=== PATIENT | male | born 2000 | race African-American/Black ===

== ENCOUNTER 2024-01-13 22:05 | Emergency (ER) | payer SELFPAY ==
[~2024-01-13] VITALS: Ht 170.2 cm; Wt 78.0 kg
[2024-01-13 22:22] VITALS: O2SAT 100
[2024-01-13] MEDS ORDERED: IBUPROFEN 600MG TABLET PO ONE (22:30)
[2024-01-13 22:38] LABS: DIFFERENTIAL COMMENT 1; HEMATOCRIT. 36.8 % (42.0-52.0); HEMOGLOBIN. 12.3 g/dL (14.0-18.0); MEAN CORPUSCULAR HEMOGLOBIN 31.2 pg (28.0-32.0); MEAN CORPUSCULAR HGB CONC 33.3 g/dL (31.0-37.0); MEAN CORPUSCULAR VOLUME 93.5 fL (80.0-94.0); PLATELET 195 x1000/uL (130-400); RED BLOOD CELL COUNT 3.94 mill/uL (4.7-6.1); RED CELL DISTRIBUTION WIDTH 14.7 % (11.6-14.6); WHITE BLOOD COUNT 5.7 x1000/uL (4.5-11.0)
[2024-01-13 22:47] LABS: CHLORIDE 111 mEq/L (98-107); SODIUM 142 mEq/L (136-145)
[2024-01-13 22:48] LABS: CARBON DIOXIDE 26 mEq/L (21-32)
[2024-01-13 22:49] LABS: CALCIUM 8.7 mg/dL (8.7-10.4)
[2024-01-13 22:53] LABS: CREATININE 1.2 mg/dL (0.6-1.3)
[2024-01-13 22:54] LABS: GLUCOSE 90 mg/dL (70-105); UREA NITROGEN BLOOD 15 mg/dL (9-23)
[2024-01-13 22:56] LABS: ACETAMINOPHEN 10 ug/mL (10-30)
[2024-01-13 23:03] LABS: ETHANOL BLOOD < 10 mg/dL (<10)
[2024-01-13 23:06] LABS: ANISOCYTOSIS 1+; PLATELET ESTIMATE NORMAL
[2024-01-13] MEDS: LORAZEPAM 2MG/ML INJ IM ONE (23:16)
[2024-01-13] MEDS: DIPHENHYDRAMINE 50MG/ML VIAL IM ONE (23:28)
[2024-01-13] MEDS: HALOPERIDOL LACTATE 5MG/ML VIAL IM ONE (23:29)
[2024-01-14 00:03] LABS: CLARITY URINE CLEAR (CLEAR); COLOR URINE YELLOW (YELLOW); GLUCOSE URINE NEGATIVE (NEGATIVE); KETONES URINE NEGATIVE (NEGATIVE); LEUKOCYTE ESTERASE URINE NEGATIVE (NEGATIVE); NITRITE URINE NEGATIVE (NEGATIVE); OCCULT BLOOD URINE NEGATIVE (NEGATIVE); PROTEIN URINE NEGATIVE (NEGATIVE); UROBILINOGEN URINE 0.2 E.U./dL (0.2-1.0)
[2024-01-14 00:11] LABS: *AMPHETAMINES SCREEN URINE NEGATIVE (NEGATIVE); *BARBITURATES SCREEN URINE NEGATIVE (NEGATIVE); *BENZODIAZEPINES SCREEN URINE NEGATIVE (NEGATIVE); *COCAINE SCREEN URINE NEGATIVE (NEGATIVE); CANNABINOID URINE SCREEN PRESUMPTIVE POSITIVE (NEGATIVE); ECSTASY MDMA SCREEN URINE NEGATIVE (NEGATIVE); METHADONE URINE SCREEN NEGATIVE (NEGATIVE); OPIATES URINE SCREEN NEGATIVE (NEGATIVE); PHENCYCLIDINE URINE SCREEN NEGATIVE (NEGATIVE)
[2024-01-14] MEDS: ARIPIPRAZOLE 5MG TABLET PO SCH (09:15)
[2024-01-15] MEDS: ZOLPIDEM TARTRATE 5MG TABLET PO ONE (01:15)
[2024-01-15] MEDS: LORAZEPAM 1MG TABLET PO NR ×2 (13:35→15:00)
[2024-01-15] MEDS ORDERED: LORAZEPAM 1MG TABLET PO ONE (14:45)
[2024-01-15] MEDS ORDERED: DIPHENHYDRAMINE 50MG/ML VIAL IM PRN (15:15)
[2024-01-15] MEDS: HALOPERIDOL LACTATE 5MG/ML VIAL IM ONE (16:06)
[2024-01-15] MEDS: LORAZEPAM 2MG/ML INJ IM ONE (16:06)
[2024-01-15] MEDS: OLANZAPINE 5MG TABLET ODT PO SCH (21:00)
[2024-01-15 21:58] VITALS: BP 131/82; PULSE 77; RESP 18; TEMP 36.89184; O2SAT 99
== END 2024-01-15 22:41 ==
LOC: ER 22:05
DX: M79.641 Pain in right hand (principal); M79.89 Other specified soft tissue disorders; Z20.822 Contact with and (suspected) exposure to COVID-19
CPT/HCPCS: 80305; 80048; 81003; 80307; 80329; 80320; 85025; 36415; 73120; 96372; 99291; 87426; J1200; J1630 ×2; J2060 ×2; Z7610; G0480